=== PATIENT | female | born 1960 | race Caucasian/White ===

== ENCOUNTER 2019-02-17 13:00 | Emergency (ER) | payer OTHER ==
--- NOTE | 2019-02-17 14:26 | ED ---
Head Injury - History Of Current Complaint Chief Complaint: EDNeckComplaint Stated Complaint: HEAD INJ FROM FALL PER PT Time Seen by Provider: 02/17/19 13:46 Hx Obtained From: Patient Pain Intensity: 2 - Allergies/Home Medications Allergies/Adverse Reactions: Allergies Allergy/AdvReac Type Severity Reaction Status Date / Time amoxicillin Allergy Diarrhea Verified 02/17/19 13:04 PMH/Surg Hx/FS Hx/Imm Hx Previously Healthy: Yes Endocrine/Hematology History: Denies: Hx Diabetes, Hx Thyroid Disease Cardiovascular History: Denies: Hx Hypercholesterolemia, Hx Hypertension, Hx Pacemaker/ICD, Hx Peripheral Vascular Disease Respiratory History: Reports: Hx Asthma - ALLERGY RELATED History: Denies: Hx Renal Disease Musculoskeletal History: Reports: Hx Rheumatoid Arthritis - 12/2018, Hx Osteoporosis - OSTEOPENIA Denies: Hx Arthritis, Hx Scoliosis Sensory History: Denies: Hx Cataracts, Hx Contacts or Glasses, Hx Glaucoma, Hx Hearing Aid Opthamlomology History: Denies: Hx Cataracts, Hx Contacts or Glasses, Hx Glaucoma Neurological History: Reports: Hx Headaches Denies: Hx Seizures, Hx Transient Ischemic Attacks (TIA), Other Neuro Impairments/Disorders Psychiatric History: Denies: Hx Anxiety, Hx Depression, Hx Panic Disorder - Cancer History Cancer Type, Location and Year: ra Hx Chemotherapy: No Hx Radiation Therapy: No - Surgical History Surgery Procedure, Year, and Place: LT CROMIOCLAVICULAR RESECTION 1991,. RT LABRUM REPAIR 2007, BREAST AUGMENTATION 2001,. RINOPLASTY 2004, TONSILECTOMY 1965-RETROGRADE W[facility]ENING OF [place]THRA [facility] - Immunization History Immunizations Up to Date: Yes Infectious Disease History: No Infectious Disease History: Denies: Traveled Outside the [place] in Last 30 Days - Family History Known Family History: Positive: Hypertension, Non-Contributory - Social History Occupation: Employed Full-time Lives: With Family Alcohol Use: Occasionally Hx Substance Use: No Substance Use Type: Reports: None Hx Tobacco Use: No Smoking Status (MU): Never Smoked Tobacco Physical Exam Vital Signs On Initial Exam: Initial Vitals Temp Pulse Resp BP Pulse Ox 97.8 F 61 18 129/80 98 02/17/19 13:00 02/17/19 13:00 02/17/19 13:00 02/17/19 13:00 02/17/19 13:00 Diagnostics - Vital Signs Vital Signs Temp Pulse Resp BP Pulse Ox 02/17/19 13:00 97.8 F 61 18 129/80 98 - Laboratory Lab Statement: Any lab studies that have been ordered have been reviewed, and results considered in the medical decision making process. Discharge ED - Discharge Plan Condition: Good Disposition: HOME Patient Education Materials: Cervical Strain (ED), Head Injury (ED) Referrals: Lida Nance MD [Primary Care Provider] - Additional Instructions: Schedule a follow up appointment with PCP within one week Tylenol or Motrin for pain as directed Apply warm compress to neck Activity as tolerated Avoid contact sports Return to ER if symptoms change or worsen - Billing Disposition and Condition Condition: GOOD Disposition: Home
[2019-02-17 15:37] VITALS: BP 125/60
== END 2019-02-17 15:36 | disposition home or self-care (01) ==
LOC: ED 13:00
DX: M50.322 Other cervical disc degeneration at C5-C6 level (principal); Z88.1 Allergy status to other antibiotic agents
CPT/HCPCS: 72040; 99281